=== PATIENT | female | born 1955 | race Caucasian/White ===

== ENCOUNTER 2021-03-07 10:49 | Inpatient (IN) ==
[2021-03-07 11:44] LABS: Basophils # 0.1 K/mcL (0.0-0.2); Basophils % 1.2 %; Eosinophils % 8.7 %; Hematocrit 40.1 % (35.3-44.9); Hemoglobin 13.2 g/dL (11.5-15.4); Immature Granulocytes % 0.2 % (0-4); Lymphocytes # 2.4 K/mcL (0.6-4.6); Lymphocytes % 22.1 %; Mean Corpuscular HGB Conc 32.9 g/dL (31.6-35.5); Mean Corpuscular Hemoglobin 29.3 pg (28.0-33.3); Mean Corpuscular Volume 89.1 fL (83.0-100.0); Mean Platelet Volume 9.8 fL (9.4-12.4); Monocytes # 0.9 K/mcL (0.0-1.3); Monocytes % 7.8 %; Neutrophils # 6.6 K/mcL (1.6-8.9); Platelet Count 271 K/mcL (140-400); Red Cell Distribution Width 13.2 % (11.5-14.5)
[2021-03-07 12:10] LABS: BUN/Creatinine Ratio 13 (6-26); Blood Urea Nitrogen 11 mg/dL (8-23); Calcium 8.8 mg/dL (8.6-10.3); Carbon Dioxide 26 mEq/L (23-29); Chloride 104 mEq/L (98-107); Glucose 101 mg/dL (70-105); Osmolality,Calculated 286 (280-300); Sodium 138 mEq/L (136-145); Troponin I < 0.03 ng/mL (< 0.04); eGFR For African Americans > 60 (> 60); eGFR For Non-African Americans > 60 (> 60)
[2021-03-07] MEDS ORDERED: Albuterol Neb 7.5 MG, Sodium Chloride for inhalation 12 ML IH ONE (12:52)
[2021-03-07] MEDS ORDERED: Ondansetron 4 MG/2 ML VIAL IVP PRN (13:03)
[2021-03-07] MEDS ORDERED: Albuterol 2.5 MG/3 ML NEBULIZER IH PRN (13:03)
[2021-03-07] MEDS ORDERED: Acetaminophen 325 MG TABLET PO PRN (13:03)
[2021-03-07] MEDS ORDERED: Naloxone 0.4 MG/ML INJ IVP PRN (13:03)
[2021-03-07] MEDS: Azithromycin 500 MG in 0.9 % Sodium Chloride 250 ML IVPB SCH (14:53)
[2021-03-07] MEDS ORDERED: methylPREDNISolone 125 MG/2 ML VIAL IVP ONE (15:20)
[2021-03-07] MEDS ORDERED: MethylPREDNISolone 40 MG/ML VIAL IVP SCH (16:00)
[2021-03-07] MEDS ORDERED: Albuterol Neb 1.25 MG/3 ML VIAL IH ONE (16:30)
[2021-03-07] MEDS ORDERED: Famotidine 20 MG/2 ML VIAL IVP ONE (16:30)
[2021-03-07] MEDS ORDERED: Ipratropium/Albuterol Neb 3 ML IH SCH (17:00)
[2021-03-07] MEDS ORDERED: Levalbuterol Neb 1.25 MG/3 ML IH PRN (17:46)
[2021-03-07] MEDS ORDERED: Ipratropium Neb 0.5 MG NEBULIZER IH PRN (17:46)
[2021-03-07] MEDS ORDERED: Benzonatate 100 MG CAPSULE PO PRN (18:52)
[2021-03-07] MEDS: MethylPREDNISolone 40 MG/ML VIAL IVP SCH (22:52)
[2021-03-08] MEDS: MethylPREDNISolone 40 MG/ML VIAL IVP SCH ×3 (05:22→21:19)
[2021-03-08] MEDS: *HR* Enoxaparin 40 MG/0.4 ML SYRINGE SQ SCH (05:22)
[2021-03-08 05:53] LABS: Hematocrit 40.4 % (35.3-44.9); Hemoglobin 13.3 g/dL (11.5-15.4); Mean Corpuscular HGB Conc 32.9 g/dL (31.6-35.5); Mean Platelet Volume 9.9 fL (9.4-12.4); Platelet Count 306 K/mcL (140-400); Red Blood Count 4.59 M/mcL (3.82-4.97); Red Cell Distribution Width 13.2 % (11.5-14.5); White Blood Count 6.6 K/mcL (4.3-11.1)
[2021-03-08 06:10] LABS: BUN/Creatinine Ratio 17 (6-26); Blood Urea Nitrogen 13 mg/dL (8-23); Calcium 8.9 mg/dL (8.6-10.3); Carbon Dioxide 23 mEq/L (23-29); Chloride 106 mEq/L (98-107); Glucose 144 mg/dL (70-105); Magnesium 2.2 mg/dL (1.6-2.6); Osmolality,Calculated 291 (280-300); Potassium 3.9 mEq/L (3.5-5.1); Sodium 139 mEq/L (136-145); eGFR For African Americans > 60 (> 60); eGFR For Non-African Americans > 60 (> 60)
[2021-03-08] MEDS: FLUoxetine 20 MG CAPSULE PO SCH (07:51)
[2021-03-08] MEDS: Metoprolol XL (24 HR) Succ 25 MG TAB.ER.24H PO SCH (07:51)
[2021-03-08] MEDS: Aspirin Enteric Coated 81 MG Tablet PO SCH (07:51)
[2021-03-08] MEDS ORDERED: cefTRIAXone 1,000 MG in Water for inj. (sterile) 10 ML IVP SCH (09:00)
[2021-03-08] MEDS ORDERED: Levalbuterol Neb 1.25 MG/3 ML IH PRN (14:23)
[2021-03-08] MEDS ORDERED: Ipratropium Neb 0.5 MG NEBULIZER IH PRN (14:23)
[2021-03-08] MEDS ORDERED: 0.9 % Sodium Chloride 1,000 ML ONE (14:49)
[2021-03-08] MEDS ORDERED: Nitroglycerin 1,000 MCG/5 ML VIAL IV ONE (14:49)
[2021-03-08] MEDS ORDERED: ISOVUE-370 200 ML INFUS..BTL ONE ×2 (14:49→16:00)
[2021-03-08] MEDS ORDERED: Heparin 1,000 UNITS/500 mL 500 ML ONE (14:49)
[2021-03-08] MEDS ORDERED: *HR* Midazolam HCl 2 MG/2 ML VIAL ONE (14:49)
[2021-03-08] MEDS ORDERED: *HR* Heparin 10,000 UNIT/10 ML VIAL ONE ×2 (14:49→15:50)
[2021-03-08] MEDS ORDERED: *HR* FentaNYL (PF) 100 MCG/2 ML VIAL ONE (14:49)
[2021-03-08] MEDS ORDERED: Tirofiban 12.5 MG/250ML 12.5 MG/250 ML BAG ONE (15:53)
[2021-03-08] MEDS ORDERED: Tirofiban 12.5 MG/250ML 12.5 MG/250 ML BAG IVC SCH (16:15)
[2021-03-08] MEDS: Azithromycin 500 MG in 0.9 % Sodium Chloride 250 ML IVPB SCH (16:25)
[2021-03-09 02:15] LABS: BUN/Creatinine Ratio 29 (6-26); Blood Urea Nitrogen 28 mg/dL (8-23); Calcium 8.6 mg/dL (8.6-10.3); Carbon Dioxide 21 mEq/L (23-29); Chloride 105 mEq/L (98-107); Glucose 142 mg/dL (70-105); Osmolality,Calculated 290 (280-300); Potassium 3.6 mEq/L (3.5-5.1); Sodium 136 mEq/L (136-145); eGFR For African Americans > 60 (> 60); eGFR For Non-African Americans 59 (> 60)
[2021-03-09] MEDS: MethylPREDNISolone 40 MG/ML VIAL IVP SCH (05:38)
[2021-03-09] MEDS: *HR* Enoxaparin 40 MG/0.4 ML SYRINGE SQ SCH (05:38)
[2021-03-09 07:31] VITALS: BP 151/92
[2021-03-09] MEDS: Aspirin Enteric Coated 81 MG Tablet PO SCH (08:09)
[2021-03-09] MEDS: FLUoxetine 20 MG CAPSULE PO SCH (08:09)
[2021-03-09] MEDS: Metoprolol XL (24 HR) Succ 25 MG TAB.ER.24H PO SCH (08:10)
== END 2021-03-09 11:03 | disposition home or self-care (01) | DRG 246 ==
LOC: 2ANU 10:49 → EMEROOARM 10:49 → SUATTDRO 17:55 → 2ANU 20:57
PROVIDERS: ADMIT Internal Medicine; ATTEND Internal Medicine